=== PATIENT | female | born 1950 | race Hispanic/Latino ===

== ENCOUNTER 2023-06-14 19:47 | Emergency (ER) | payer MEDICARE ==
[~2023-06-14] VITALS: Ht 162.6 cm; Wt 81.6 kg
[2023-06-14] MEDS: CYCLOBENZAPRINE HCL 10 MG TABLET PO ONE (20:31)
[2023-06-14] MEDS: MORPHINE 2 MG SYG IVP ONE (20:31)
[2023-06-14] MEDS: KETOROLAC 30MG VIAL (30MG/ML) IVP ONE (20:31)
[2023-06-14] MEDS: SOLU-MEDROL 125MG VIAL IVP ONE (20:31)
[2023-06-14] MEDS: ONDANSETRON 4MG INJ IVP ONE (20:33)
[2023-06-14 21:42] VITALS: BP 156/79; PULSE 79; RESP 20; O2SAT 98
[2023-06-14] MEDS ORDERED: METH4TAB3 PO (21:55)
[2023-06-14] MEDS ORDERED: CYCL-309 PO (21:55)
[2023-06-14] MEDS ORDERED: OMEP40CA21 PO (21:55)
[2023-06-14] MEDS ORDERED: IBUP-2077 PO (21:55)
[2023-06-14 23:38] LABS: APPEARANCE,URINE CLEAR (CLEAR); BILIRUBIN,URINE NEGATIVE (NEGATIVE); COLOR,URINE LIGHT-YELLOW (YELLOW); GLUCOSE, URINE (UA) NEGATIVE (NEGATIVE); KETONES,URINE NEGATIVE (NEGATIVE); LEUKOCYTE ESTERASE ,URINE 75 Leu/uL (NEGATIVE); NITRATE,URINE NEGATIVE (NEGATIVE); OCCULT BLOOD,URINE NEGATIVE (NEGATIVE); PH,URINE 6.5 (5.0-8.0); PROTEIN,URINE 20 mg/dL (NEGATIVE); UROBILINOGEN,URINE 0.2 mg/dL (0.2-1.0)
[2023-06-14 23:42] LABS: ADD UA MICROSCOPIC YES
[2023-06-14 23:43] LABS: MUCUS,URINE MOD LPF (None Seen); SQUAMOUS EPITHELIAL CELL,UR RARE /HPF (0-2)
== END 2023-06-14 22:06 | disposition home or self-care (01) ==
LOC: EDH 19:47
DX: S39.012A Strain of muscle, fascia and tendon of lower back, initial encounter (principal); M54.41 Lumbago with sciatica, right side; E11.9 Type 2 diabetes mellitus without complications; X58.XXXA Exposure to other specified factors, initial encounter; Y93.89 Activity, other specified; Y92.89 Other specified places as the place of occurrence of the external cause; Y99.8 Other external cause status
CPT/HCPCS: 99284; 96374; 96375; 87088; 81001; 72100; J2270; J2930; J2405; J1885